=== PATIENT | female | born 2000 | race Caucasian/White ===

== ENCOUNTER 2018-06-05 16:19 | Emergency (ER) | payer SELFPAY ==
[~2018-06-05] VITALS: Ht 162.6 cm; Wt 114.5 kg
[2018-06-05 16:24] VITALS: Ht 162.6 cm; Wt 114.5 kg
[2018-06-05 16:48] LABS: BASOPHILS 0.3 % (0-2); EOSINOPHILS 3.9 % (0-7); HEMATOCRIT 40.1 % (36.0-48.0); HEMOGLOBIN 13.5 g/dL (12-16); IMMATURE GRANULOCYTES 0.1 % (0-5); LYMPHOCYTES 36.3 % (15-50); MCH 29.3 pg (26.0-34.0); MCHC 33.7 g/dL (31.0-37.0); MONOCYTES 6.3 % (2-11); NEUTROPHILS 53.1 % (40-80); PLATELET COUNT 317 10x3/uL (130-400); RBC 4.61 10x6/uL (4.00-5.40); RDW 12.2 % (11.5-14.5); WBC 9.8 10x3/uL (4.8-10.8)
[2018-06-05 16:51] LABS: APPEARANCE HAZY (CLEAR); BILIRUBIN NEGATIVE (NEGATIVE); COLOR YELLOW (YELLOW); GLUCOSE NEGATIVE (NEGATIVE); KETONE NEGATIVE (NEGATIVE); NITRITE NEGATIVE (NEGATIVE); PROTEIN NEGATIVE (NEGATIVE); SPECIFIC GRAVITY 1.015 (1.005-1.020); UROBILINOGEN NORMAL (NORMAL)
[2018-06-05 16:52] LABS: EPITHELIAL CELLS 0-5 /hpf (0-5)
[2018-06-05 16:53] LABS: AMORPHOUS SEDIMENT >1+ /lpf (NONE SEEN); BACTERIA FEW /hpf (NONE SEEN)
[2018-06-05 17:09] LABS: ALBUMIN 3.8 g/dL (3.4-5.0); ALKALINE PHOSPHATASE 66 U/L (46-116); ALT (SGPT) 18 U/L (10-68); AMYLASE - SERUM 45 U/L (25-115); BILIRUBIN - TOTAL 0.41 mg/dL (0.2-1.3); CALC OSMOLALITY 283 mosm/kg (275-300); CALCIUM 9.5 mg/dL (8.5-10.1); CARBON DIOXIDE 30.9 mmol/L (21.0-32.0); CHLORIDE - SERUM 106 mmol/L (98-107); CREATININE - SERUM 0.9 mg/dL (0.6-1.3); GLUCOSE 76 mg/dL (74-106); LIPASE 153 U/L (73-393); POTASSIUM - SERUM 4.5 mmol/L (3.5-5.1); PROTEIN - SERUM 7.1 g/dL (6.4-8.2); SODIUM 143 mmol/L (136-145); UREA NITROGEN 13 mg/dL (7-18); eGFR NON AFRICAN AMERICAN 85 mL/min (90-120)
[2018-06-05 17:34] LABS: HCG SERUM NEGATIVE (NEGATIVE)
[2018-06-05] MEDS ORDERED: PHENERGAN25 M1 PO ×2 (17:56→17:57)
[2018-06-05] MEDS ORDERED: CIPRO500 MG PO (17:56)
[2018-06-05 18:20] VITALS: BP 128/75
== END 2018-06-05 18:21 | disposition home or self-care (01) ==
LOC: D.ER 16:19
PROVIDERS: Emergency Medicine
DX: N39.0 Urinary tract infection, site not specified (principal); R10.31 Right lower quadrant pain; M54.5 Low back pain; F17.200 Nicotine dependence, unspecified, uncomplicated

== ENCOUNTER 2018-06-12 14:38 | Emergency (ER) | payer SELFPAY ==
[~2018-06-12] VITALS: Ht 162.6 cm; Wt 113.6 kg
[~2018-06-12 14:38] MED LIST: CIPRO500 MG PO; PHENERGAN25 M1 PO
[2018-06-12 14:59] VITALS: Ht 162.6 cm; Wt 113.6 kg
[2018-06-12 16:10] LABS: APPEARANCE HAZY (CLEAR); BILIRUBIN NEGATIVE (NEGATIVE); COLOR DK YELLOW (YELLOW); GLUCOSE NEGATIVE (NEGATIVE); KETONE NEGATIVE (NEGATIVE); NITRITE NEGATIVE (NEGATIVE); PROTEIN NEGATIVE (NEGATIVE); UROBILINOGEN NORMAL (NORMAL)
[2018-06-12 16:15] LABS: BACTERIA FEW /hpf (NONE SEEN); RED CELLS - URINE 0-5 /hpf (0-5); WHITE CELLS - URINE 0-5 /hpf (0-5)
[2018-06-12 16:16] LABS: MUCUS <1+ /lpf (NONE SEEN)
[2018-06-12] MEDS ORDERED: ZOFRAN4 MG PO (16:57)
[2018-06-12] MEDS ORDERED: MACROBID100 MG PO (16:57)
[2018-06-12 17:16] VITALS: BP 118/64
== END 2018-06-12 17:17 | disposition home or self-care (01) ==
LOC: D.ER 14:38
PROVIDERS: Family Medicine
DX: N39.0 Urinary tract infection, site not specified (principal); R19.7 Diarrhea, unspecified; F17.200 Nicotine dependence, unspecified, uncomplicated

== ENCOUNTER 2019-04-17 07:54 | Emergency (ER) | payer MEDICAID ==
[~2019-04-17 07:54] MED LIST changes: +MACROBID100 MG PO; +ZOFRAN4 MG PO
[2019-04-17 07:59] VITALS: Ht 162.6 cm
[2019-04-17 08:33] LABS: APPEARANCE CLEAR (CLEAR); BILIRUBIN NEGATIVE (NEGATIVE); COLOR YELLOW (YELLOW); GLUCOSE NEGATIVE (NEGATIVE); KETONE NEGATIVE (NEGATIVE); NITRITE NEGATIVE (NEGATIVE); PROTEIN NEGATIVE (NEGATIVE); UROBILINOGEN NORMAL (NORMAL)
[2019-04-17 08:34] LABS: HEMATOCRIT 38.8 % (36.0-48.0); HEMOGLOBIN 13.6 g/dL (12-16); MCH 28.8 pg (26.0-34.0); MCHC 35.1 g/dL (31.0-37.0); MCV 82.2 fL (80.0-100.0); PLATELET COUNT 256 10x3/uL (130-400); RBC 4.72 10x6/uL (4.00-5.40); RDW 12.4 % (11.5-14.5); WBC 6.9 10x3/uL (4.8-10.8)
[2019-04-17 08:45] LABS: ALBUMIN 3.6 g/dL (3.4-5.0); ALKALINE PHOSPHATASE 69 U/L (46-116); ALT (SGPT) 21 U/L (10-68); BILIRUBIN - TOTAL 0.54 mg/dL (0.2-1.3); CALC OSMOLALITY 278 mosm/kg (275-300); CALCIUM 8.9 mg/dL (8.5-10.1); CARBON DIOXIDE 25.6 mmol/L (21.0-32.0); CHLORIDE - SERUM 107 mmol/L (98-107); CREATININE - SERUM 0.7 mg/dL (0.6-1.3); GLUCOSE 89 mg/dL (74-106); POTASSIUM - SERUM 3.7 mmol/L (3.5-5.1); PROTEIN - SERUM 6.9 g/dL (6.4-8.2); SODIUM 141 mmol/L (136-145); UREA NITROGEN 9 mg/dL (7-18); eGFR NON AFRICAN AMERICAN > 90 mL/min (90-120)
[2019-04-17 09:07] LABS: HCG - QUANTITATIVE (MATERNAL) 3184 mIU/mL
[2019-04-17 09:19] LABS: EOSINOPHILS 6 % (0-7); LYMPHOCYTES 59 % (15-50); MONOCYTES 1 % (2-11); NEUTROPHILS 34 % (40-80); PLATELET ESTIMATE NORMAL
[2019-04-17 11:00] VITALS: BP 106/50
== END 2019-04-17 11:00 | disposition home or self-care (01) ==
LOC: D.ER 07:54
PROVIDERS: Emergency Medicine
DX: O26.891 Other specified pregnancy related conditions, first trimester (principal); Z3A.01 Less than 8 weeks gestation of pregnancy; R11.2 Nausea with vomiting, unspecified

== ENCOUNTER 2019-04-26 17:01 | Emergency (ER) | payer MEDICAID ==
[~2019-04-26] VITALS: Ht 162.6 cm; Wt 114.5 kg
[2019-04-26 17:50] VITALS: Ht 162.6 cm; Wt 114.5 kg
[2019-04-26 18:56] LABS: APPEARANCE CLEAR (CLEAR); BILIRUBIN NEGATIVE (NEGATIVE); COLOR YELLOW (YELLOW); GLUCOSE NEGATIVE (NEGATIVE); KETONE NEGATIVE (NEGATIVE); NITRITE NEGATIVE (NEGATIVE); PROTEIN NEGATIVE (NEGATIVE); SPECIFIC GRAVITY 1.015 (1.005-1.020); UROBILINOGEN NORMAL (NORMAL)
[2019-04-26 19:03] LABS: WHITE CELLS - URINE OCC /hpf (0-5)
[2019-04-26 19:04] LABS: EPITHELIAL CELLS 0-5 /hpf (0-5); RED CELLS - URINE OCC /hpf (0-5)
[2019-04-26 20:06] LABS: BASOPHILS 0.3 % (0-2); EOSINOPHILS 1.7 % (0-7); HEMATOCRIT 39.8 % (36.0-48.0); HEMOGLOBIN 13.9 g/dL (12-16); IMMATURE GRANULOCYTES 0.3 % (0-5); LYMPHOCYTES 40.9 % (15-50); MCH 29.1 pg (26.0-34.0); MCHC 34.9 g/dL (31.0-37.0); MCV 83.4 fL (80.0-100.0); MEAN PLATELET VOLUME 8.9 fL (7.4-10.4); MONOCYTES 7.1 % (2-11); NEUTROPHILS 49.7 % (40-80); PLATELET COUNT 261 10x3/uL (130-400); RBC 4.77 10x6/uL (4.00-5.40); RDW 12.4 % (11.5-14.5); WBC 10.8 10x3/uL (4.8-10.8)
[2019-04-26 20:49] LABS: CALC OSMOLALITY 273 mosm/kg (275-300); CALCIUM 9.2 mg/dL (8.5-10.1); CARBON DIOXIDE 26.8 mmol/L (21.0-32.0); CHLORIDE - SERUM 103 mmol/L (98-107); CREATININE - SERUM 0.6 mg/dL (0.6-1.3); GLUCOSE 88 mg/dL (74-106); HCG - QUANTITATIVE (MATERNAL) 26741 mIU/mL; SODIUM 138 mmol/L (136-145); UREA NITROGEN 9 mg/dL (7-18); eGFR NON AFRICAN AMERICAN > 90 mL/min (90-120)
[2019-04-26] MEDS ORDERED: CYCLOBENZAPRINE10 MG PO (21:22)
[2019-04-26 21:31] VITALS: BP 120/69
== END 2019-04-26 21:31 | disposition home or self-care (01) ==
LOC: D.ER 17:01
PROVIDERS: Family Medicine
DX: M54.5 Low back pain (principal)

== ENCOUNTER 2019-06-09 10:03 | Emergency (ER) | payer MEDICAID ==
[~2019-06-09] VITALS: Ht 162.6 cm; Wt 114.5 kg
[~2019-06-09 10:03] MED LIST changes: +CYCLOBENZAPRINE10 MG PO
[2019-06-09 10:12] VITALS: Ht 162.6 cm; Wt 114.5 kg
[2019-06-09 10:45] LABS: BASOPHILS 0.3 % (0-2); EOSINOPHILS 0.8 % (0-7); HEMATOCRIT 35.6 % (36.0-48.0); HEMOGLOBIN 12.5 g/dL (12-16); IMMATURE GRANULOCYTES 0.1 % (0-5); LYMPHOCYTES 38.7 % (15-50); MCH 28.9 pg (26.0-34.0); MCHC 35.1 g/dL (31.0-37.0); MCV 82.4 fL (80.0-100.0); MEAN PLATELET VOLUME 9.2 fL (7.4-10.4); MONOCYTES 6.9 % (2-11); NEUTROPHILS 53.2 % (40-80); PLATELET COUNT 278 10x3/uL (130-400); RBC 4.32 10x6/uL (4.00-5.40); RDW 12.1 % (11.5-14.5); WBC 7.3 10x3/uL (4.8-10.8)
[2019-06-09 10:53] LABS: CALC OSMOLALITY 269 mosm/kg (275-300); CALCIUM 9.2 mg/dL (8.5-10.1); CARBON DIOXIDE 24.6 mmol/L (21.0-32.0); CHLORIDE - SERUM 104 mmol/L (98-107); CREATININE - SERUM 0.5 mg/dL (0.6-1.3); GLUCOSE 82 mg/dL (74-106); POTASSIUM - SERUM 3.9 mmol/L (3.5-5.1); SODIUM 137 mmol/L (136-145); UREA NITROGEN 5 mg/dL (7-18); eGFR NON AFRICAN AMERICAN > 90 mL/min (90-120)
[2019-06-09 11:05] LABS: APPEARANCE CLOUDY (CLEAR); BILIRUBIN NEGATIVE (NEGATIVE); COLOR YELLOW (YELLOW); GLUCOSE NEGATIVE (NEGATIVE); KETONE SMALL mg/dL (NEGATIVE); NITRITE NEGATIVE (NEGATIVE); PROTEIN NEGATIVE (NEGATIVE); UROBILINOGEN NORMAL (NORMAL)
[2019-06-09 11:09] LABS: AMORPHOUS SEDIMENT >1+ /lpf (NONE SEEN); BACTERIA FEW /hpf (NEGATIVE); EPITHELIAL CELLS 0-5 /hpf (0-5); MUCUS >1+ /lpf (NONE SEEN); RED CELLS - URINE RARE /hpf (0-5); WHITE CELLS - URINE 0-5 /hpf (NEGATIVE)
[2019-06-09 11:19] LABS: ALBUMIN 3.9 g/dL (3.4-5.0); ALKALINE PHOSPHATASE 64 U/L (46-116); ALT (SGPT) 32 U/L (10-68); HCG - QUANTITATIVE (MATERNAL) 82317 mIU/mL; PROTEIN - SERUM 7.6 g/dL (6.4-8.2)
[2019-06-09] MEDS ORDERED: ZOFRAN ODT4 MG/UDTAB PO (14:11)
[2019-06-09 15:05] VITALS: BP 128/61
== END 2019-06-09 15:05 | disposition home or self-care (01) ==
LOC: D.ER 10:03
PROVIDERS: Family Medicine
DX: O26.90 Pregnancy related conditions, unspecified, unspecified trimester (principal); R11.2 Nausea with vomiting, unspecified

== ENCOUNTER 2019-06-11 15:05 | Emergency (ER) | payer MEDICAID ==
[~2019-06-11] VITALS: Ht 162.6 cm; Wt 97.7 kg
[~2019-06-11 15:05] MED LIST changes: +ZOFRAN ODT4 MG/UDTAB PO
[2019-06-11 15:10] VITALS: Ht 162.6 cm; Wt 97.7 kg
[2019-06-11 18:50] VITALS: BP 116/45
== END 2019-06-11 18:45 | disposition home or self-care (01) ==
LOC: D.ER 15:05
DX: O20.0 Threatened abortion (principal); O99.331 Smoking (tobacco) complicating pregnancy, first trimester

== ENCOUNTER 2019-07-14 12:34 | Emergency (ER) | payer MEDICAID ==
[~2019-07-14] VITALS: Ht 162.6 cm; Wt 118.2 kg
[2019-07-14 12:39] VITALS: Ht 162.6 cm; Wt 118.2 kg
[2019-07-14 13:21] LABS: CALC OSMOLALITY 266 mosm/kg (275-300); CALCIUM 9.2 mg/dL (8.5-10.1); CARBON DIOXIDE 22.1 mmol/L (21.0-32.0); CHLORIDE - SERUM 104 mmol/L (98-107); CREATININE - SERUM 0.5 mg/dL (0.6-1.3); GLUCOSE 79 mg/dL (74-106); POTASSIUM - SERUM 3.8 mmol/L (3.5-5.1); SODIUM 135 mmol/L (136-145); UREA NITROGEN 6 mg/dL (7-18); eGFR NON AFRICAN AMERICAN > 90 mL/min (90-120)
[2019-07-14 13:41] LABS: BASOPHILS 0.2 % (0-2); EOSINOPHILS 0.7 % (0-7); HEMATOCRIT 31.5 % (36.0-48.0); IMMATURE GRANULOCYTES 0.3 % (0-5); LYMPHOCYTES 28.9 % (15-50); MCH 29.4 pg (26.0-34.0); MCHC 34.9 g/dL (31.0-37.0); MCV 84.2 fL (80.0-100.0); MONOCYTES 6.1 % (2-11); NEUTROPHILS 63.8 % (40-80); PLATELET COUNT 333 10x3/uL (130-400); RBC 3.74 10x6/uL (4.00-5.40); RDW 12.4 % (11.5-14.5); WBC 10.6 10x3/uL (4.8-10.8)
[2019-07-14 13:45] LABS: APPEARANCE CLEAR (CLEAR); BILIRUBIN NEGATIVE (NEGATIVE); COLOR YELLOW (YELLOW); GLUCOSE NEGATIVE (NEGATIVE); KETONE NEGATIVE (NEGATIVE); NITRITE NEGATIVE (NEGATIVE); PROTEIN NEGATIVE (NEGATIVE); SPECIFIC GRAVITY 1.015 (1.005-1.020)
[2019-07-14 13:46] LABS: BACTERIA MODERATE /hpf (NEGATIVE); EPITHELIAL CELLS 0-5 /hpf (0-5); MUCUS <1+ /lpf (NONE SEEN); RED CELLS - URINE NONE SEEN /hpf (0-5); WHITE CELLS - URINE RARE /hpf (NEGATIVE)
[2019-07-14 13:49] LABS: ALBUMIN 3.2 g/dL (3.4-5.0); ALKALINE PHOSPHATASE 109 U/L (46-116); ALT (SGPT) 47 U/L (10-68); HCG - QUANTITATIVE (MATERNAL) 38990 mIU/mL; PROTEIN - SERUM 7.2 g/dL (6.4-8.2)
[2019-07-14 15:21] VITALS: BP 124/66
[2019-07-14] MEDS ORDERED: KEFLEX500 MG PO (16:10)
[2019-07-14] MEDS ORDERED: MACROBID100 MG PO (16:10)
== END 2019-07-14 16:18 | disposition home or self-care (01) ==
LOC: D.ER 12:34
PROVIDERS: Family Medicine
DX: O20.0 Threatened abortion (principal); Z3A.18 18 weeks gestation of pregnancy; R82.71 Bacteriuria; O26.852 Spotting complicating pregnancy, second trimester

== ENCOUNTER → 2019-08-12 12:56 | Outpatient (CLI) | payer MEDICAID ==
[2019-07-14 12:39] VITALS: BMI 44.7
[~2019-08-12 12:56] MED LIST changes: +KEFLEX500 MG PO
== END | disposition home or self-care (01) ==
LOC: D.LDO 12:56
PROVIDERS: ATTEND Obstetrics & Gynecology
DX: O36.8120 Decreased fetal movements, second trimester, not applicable or unspecified (principal); Z3A.22 22 weeks gestation of pregnancy

== ENCOUNTER → 2019-08-18 14:50 | Outpatient (CLI) | payer MEDICAID ==
[2019-07-14 12:39] VITALS: BMI 44.7
== END | disposition home or self-care (01) ==
LOC: D.LDO 14:50
PROVIDERS: ATTEND Obstetrics & Gynecology
DX: O26.899 Other specified pregnancy related conditions, unspecified trimester (principal); W19.XXXA Unspecified fall, initial encounter; Y92.69 Other specified industrial and construction area as the place of occurrence of the external cause

== ENCOUNTER → 2019-08-19 13:47 | Outpatient (CLI) | payer MEDICAID ==
[2019-07-14 12:39] VITALS: BMI 44.7
== END | disposition home or self-care (01) ==
LOC: D.LDO 13:47
PROVIDERS: ATTEND Obstetrics & Gynecology
DX: O26.892 Other specified pregnancy related conditions, second trimester (principal); M54.89 Other dorsalgia; R11.0 Nausea; Z3A.22 22 weeks gestation of pregnancy

== ENCOUNTER → 2019-11-01 10:02 | Outpatient (CLI) | payer MEDICAID ==
[2019-07-14 12:39] VITALS: BMI 44.7
[~2019-11-01 10:02] MED LIST changes: +ALBUTEROL SULF8.5 GM INH; +PROTONIX40 MG PO
[2019-11-01 10:39] LABS: UDS - AMPHET NEGATIVE QUAL (NEGATIVE); UDS - BARB NEGATIVE QUAL (NEGATIVE); UDS - BENZO NEGATIVE QUAL (NEGATIVE); UDS - COCAINE NEGATIVE QUAL (NEGATIVE); UDS - OPIATE NEGATIVE QUAL (NEGATIVE); UDS - PCP NEGATIVE QUAL (NEGATIVE); UDS - THC POSITIVE QUAL (NEGATIVE)
--- NOTE | 2019-11-01 10:47 | NUR ---
DR CHAO NOTIFIED AND REVIEWED PT'S BEHAVIOR AND ASSESSMENT RESULTS. PT IS A LOW RISK PER DR. CHAO. DR. CHAO STATED TO GIVE RESOURCES TO PT AT TIME OF DISCHARGE. NO FURTHER ORDERS AT THIS TIME. RESOURCES REVIEWED WITH PT. AND SHE VERBALIZED UNDERSTANDING.
[2019-11-01 11:00] LABS: BILIRUBIN NEGATIVE (NEGATIVE); GLUCOSE NEGATIVE (NEGATIVE); KETONE NEGATIVE (NEGATIVE); NITRITE NEGATIVE (NEGATIVE); RED CELLS - URINE RARE /hpf (0-5); SPECIFIC GRAVITY 1.015 (1.005-1.020); UROBILINOGEN NORMAL (NORMAL); WHITE CELLS - URINE 0-5 /hpf (NEGATIVE)
[2019-11-01 11:01] LABS: BACTERIA MODERATE /hpf (NEGATIVE)
== END | disposition home or self-care (01) ==
LOC: D.LDO 10:02
PROVIDERS: ATTEND Obstetrics & Gynecology
DX: O36.8130 Decreased fetal movements, third trimester, not applicable or unspecified (principal); Z3A.33 33 weeks gestation of pregnancy

== ENCOUNTER → 2019-11-28 15:47 | Outpatient (CLI) | payer MEDICAID ==
[2019-07-14 12:39] VITALS: BMI 44.7
--- NOTE | 2019-11-28 16:01 | NUR ---
DR CHAO NOTIFIED AND REVIEWED PT'S BEHAVIOR AND ASSESSMENT. PT IS A LOW RISK. RESOURCES GIVEN AND SHE VERBALIZES UNDERSTANDING.
[2019-11-28 16:48] LABS: HEMATOCRIT 31.1 % (36.0-48.0); HEMOGLOBIN 10.1 g/dL (12-16); MCH 28.5 pg (26.0-34.0); MCHC 32.5 g/dL (31.0-37.0); MCV 87.6 fL (80.0-100.0); MEAN PLATELET VOLUME 9.1 fL (7.4-10.4); RBC 3.55 10x6/uL (4.00-5.40); RDW 12.7 % (11.5-14.5); WBC 11.6 10x3/uL (4.8-10.8)
[2019-11-28 16:57] LABS: CALC OSMOLALITY 271 mosm/kg (275-300); CALCIUM 8.6 mg/dL (8.5-10.1); CHLORIDE - SERUM 106 mmol/L (98-107); CREATININE - SERUM 0.7 mg/dL (0.6-1.3); GLUCOSE 86 mg/dL (74-106); SODIUM 137 mmol/L (136-145); UREA NITROGEN 9 mg/dL (7-18); eGFR NON AFRICAN AMERICAN > 90 mL/min (90-120)
[2019-11-28 17:02] LABS: ALT (SGPT) 23 U/L (10-68); URIC ACID 5.5 mg/dL (2.6-7.2)
[2019-11-29 18:04] LABS: PROTEIN - URINE 24.7 mg/dL (0.0-11.9)
== END | disposition home or self-care (01) ==
LOC: D.LDO 15:47
PROVIDERS: ATTEND Obstetrics & Gynecology
DX: O35.9XX0 Maternal care for (suspected) fetal abnormality and damage, unspecified, not applicable or unspecified (principal)

== ENCOUNTER 2019-12-12 20:11 | Inpatient (IN) | payer MEDICAID ==
[~2019-12-12] VITALS: Ht 162.6 cm; Wt 134.5 kg
[2019-12-12 20:47] VITALS: BP 119/57; Ht 162.6 cm; Wt 134.5 kg
[2019-12-12 21:31] LABS: HEMATOCRIT 31.8 % (36.0-48.0); HEMOGLOBIN 10.3 g/dL (12-16); MCH 28.2 pg (26.0-34.0); MCHC 32.4 g/dL (31.0-37.0); MCV 87.1 fL (80.0-100.0); MEAN PLATELET VOLUME 9.4 fL (7.4-10.4); RBC 3.65 10x6/uL (4.00-5.40); RDW 12.6 % (11.5-14.5); WBC 13.4 10x3/uL (4.8-10.8)
[2019-12-12 21:44] LABS: UDS - AMPHET NEGATIVE QUAL (NEGATIVE); UDS - BARB NEGATIVE QUAL (NEGATIVE); UDS - BENZO NEGATIVE QUAL (NEGATIVE); UDS - COCAINE NEGATIVE QUAL (NEGATIVE); UDS - OPIATE NEGATIVE QUAL (NEGATIVE); UDS - PCP NEGATIVE QUAL (NEGATIVE); UDS - THC NEGATIVE QUAL (NEGATIVE)
[2019-12-14 06:08] LABS: RAPID PLASMA REAGIN Non Reactive (Non Reactive)
[2019-12-15] VITALS (9 sets, daily range): BP systolic 100–124; BP diastolic 56–77
--- NOTE | 2019-12-15 13:00 | NUR ---
RECEIVED PT FROM VIA BED TO ROOM 1273. BED LOCKED AND PLACED IN LOW POSITION. PT AWAKE. AAO X 3. VSS. HRRR WITHOUT AUDIBLE MURMUR. BBS CLEAR. BS X 4-HYPOACTIVE. ABDOMEN SOFT/NON-DISTENDED. FUNDUS FIRM TO PT RIGHT OF UMB. RUBRA LOCHIA MOD AMT. 2 QUARTER SIZED CLOTS NOTED. FUNDUS MASSAGED WITH NO CLOTS EXPRESSED OR ACTIVE BLEEDING NOTED. PERICARE DONE. CHUX, PINK PAD AND TOWEL CHANGED. PERIPADS IN PLACE TO MONITOR LOCHIA. ABDOMINAL INCISION WITH DERMABOND WITHOUT REDNESS, SWELLING OR DRAINAGE NOTED. PERIPAD TO INCISION. MURRY TO GRAVITY DRAINING NARESH COLORED URINE. 2+/2+ PITTING EDEMA NOTED TO BLE. PPP. NEG HOMANS' SIGN. SCDS ON BLE. PUMP ON. ICE PACK TO INCISION. PIV OF NS WITH PITOCIN INFUSING AT 125 ML/HR TO RIGHT WRIST. SITE CLEAR. PT STATES C/O ABDOMINAL CRAMPING OF "5" ON 0-10 PAIN SCALE. PT INSTRUCTED ON USE OF INCENTIVE SPIROMETER AND PT PULLS 2200 EASILY. PT USES SURGICAL SPLINT PILLOW INSTRUCTED. PT ORIENTED TO ROOM, BED, AND CALL LIGHT. SR UPX 2. CALL LIGHT IN REACH.
--- NOTE | 2019-12-15 13:20 | NUR ---
DR. TALBOT CALLS TO UNIT.
--- NOTE | 2019-12-15 14:00 | NUR ---
PT SITTING UP IN BED. COMPLETING PAPERWORK FOR NURSERY. PERIPADS CHANGED WITH SMALL TO MOD AMT OF KATHY ANDRES NOTED. NO CLOTS NOTED. VSS. PT DENIES C/O. STATES PAIN NOW"4" ON 0-10 PAIN SCALE. STATES "IT'S NOT BAD".
--- NOTE | 2019-12-15 14:05 | NUR ---
PT ENCOURAGED TO CONSUME LIQUIDS TO IMPROVE URINARY OUTPUT. PT PROVIDED TALL CUP OF WATER AND TALL CUP OF APPLE JUICE. DENIES NAUSEA.
--- NOTE | 2019-12-15 14:08 | NUR ---
DR. TALBOT CALLS TO UNIT TO LEAVE SECONDARY CONTACT PHONE NUMBER FOR HIS CALL TIME. TELEPHONE ORDER RECEIVED FROM MD TO ADMINISTER 2 GRAM IV AT 2PM, AND AGAIN AT 10 PM TODAY. REPORT TO Yadira DOTSON RN.
--- NOTE | 2019-12-15 14:45 | NUR ---
PT CALLS ON LIGHT. C/O INCISIONAL PAIN/CRAMPING OF "8" ON 0-10 PAIN SCALE. DILAUDID 2 MG GIVEN SIVP OVER 2 MINUTES. PT INSTRUCTED ON MED. VERBALIZES UNDERSTANDING.
--- NOTE | 2019-12-15 15:00 | NUR ---
PT CONSUMES BOTH ICE WATER AND APPLE JUICE. ANOTHER TALL CUP OF WATER AND TALL CUP OF APPLE JUICE PROVIDED. PT DENIES NAUSEA.
--- NOTE | 2019-12-15 17:00 | NUR ---
I/O COMPLETED. FUNDUS FIRM AT U/U. KATHY ACEVEDO AMT. NO CLOTS EXPRESSED. PERIPADS CHANGED. I/O COMPLETED. ICE WATER PROVIDED TO PT. PT DENIES NEEDS OR C/O.
--- NOTE | 2019-12-15 18:40 | NUR ---
PERIPADS CHANGED. SMALL AMT OF RUBRA LOCHIA NOTED. NO CLOTS NOTED. FRESH ICE PACK TO INCISION. FRESH ICE WATER AND APPLE JUICE PROVIDED TO PT. PT DENIES PAIN OR NEEDS.
--- NOTE | 2019-12-15 19:23 | NUR ---
PT SITTING UP IN BED. HOLDS WITH MUCH WARMTH SHOWN. TORADOL 30 MG GIVEN SIVP OVER 2 MINUTES. PT INSTRUCTED ON MED. VERBALIZES UNDERSTANDING.
--- NOTE | 2019-12-15 19:40 | NUR ---
PT HOLDING INFANT, INFORMED PT THAT I WILL BE BACK SHORTLY TO DO ASSESSMENT, PT VERBALIZES UNDERSTANDING, RATES INC AND BACK PAIN /, DENIES NEEDS AT THIS TIME, FOB AT BEDSIDE
--- NOTE | 2019-12-15 20:30 | NUR ---
PT TRANSFERRED VIA BED TO WOMEN SERVICES ROOM 1220, TO NSY PER THIS RN, PT ORIENTED TO ROOM, BED IN LOW POSITION, SIDE RAILS X 2, CALL LIGHT IN REACH, FOB AT BEDSIDE, BROUGHT ALL BELONGINGS
--- NOTE | 2019-12-15 21:43 | NUR ---
ASSESSMENT PER FLOW SHEET, VS OBTAINED, IV IN RIGHT WRIST INTACT WITH NO REDNESS OR EDEMA INFUSING VIA PUMP NS WITH PITOCIN, FF, ML, U/1, LITE BLEEDING NOTED WITH NO CLOTS, TRAVIS CARE DONE WITH WET WARM WASH CLOTHS, TRAVIS PAD CHANGED, BIKINIK INC WITH DRESSING WITH LITE DRIED DRAINAGE NOTED, TRAVIS PAD OVER INC FOR COMFORT AND MOISTURE CONTROL, FRESH ICE PACK TO ABD, MURRY CATH INTACT DRAINING DARK YELLOW URINE, SCD'S ON AND WORKING PROPERLY, POC DISCUSSED WITH PT REGARDING REMOVING MURRY CATH AND SALINE LOCK IV, PT VERBALIZES UNDERSTANDING, PT RATES INC AND BACK PAIN 2/10 AT THIS TIME, DENIES NEED FOR PAIN MED AT THIS TIME, BED IN LOW POSITION, SIDE RAILS X 2, CALL LIGHT IN REACH
--- NOTE | 2019-12-15 22:15 | NUR ---
BEDDING PROVIDED FOR FOB, PT DENIES FURTHER NEEDS
--- NOTE | 2019-12-15 23:13 | NUR ---
ADM ANCEF IVPB AND PERCOCET PO PER MD ORDERS, SEE EMAR, PT DENIES NEEDS AT THIS TIME, BACK TO NSY VIA OPEN CRIB CART PER SURJIT CESAR RN
[2019-12-16 00:27] VITALS: BP 96/54
--- NOTE | 2019-12-16 00:27 | NUR ---
PT AWAKE, VS OBTAINED, ADM TORADOL SIVP PER MD ORDERS, IV CONVERTED TO SALINE LOCK, FLUSHED WITH 10 MLS OF NS WITH NO DIFFICULTY, MURRY CATH REMOVED, TIP INTACT, EMPTIED 900 MLS OF DARK YELLOW URINE OUT OF MURRY, SCD'S REMOVED, PT UP TO BR, GAIT STEADY, UNABLE TO VOID, PT INST ON AND VERBALIZES UNDERSTANDING OF VOIDING, ASSISTED PT WITH TRAVIS PAD, PANTIES, AND CLEAN GOWN, PT REQUESTS TO AMB IN ROOM FOR A FEW MINUTES, INFORMED PT THAT I WILL GET ICE PACK AND BE BACK IN A FEW MINUTES, FOB IN ROOM
--- NOTE | 2019-12-16 00:50 | NUR ---
PT BACK TO BED, SCD'S RECONNECTED AND WORKING PROPERLY, NEW TRAVIS PAD OVER INC FOR COMFORT AND MOISTURE CONTROL, PT INST ON AND VERBALIZES UNDERSTANDING OF INC CARE, ICE PACK TO ABD, PT DENIES FURTHER NEEDS, ASSISTED FOB WITH PULL OUT RECLINER
--- NOTE | 2019-12-16 01:00 | NUR ---
PT REQUESTED AND SERVED FRESH APPLE JUICE, DENIES FURTHER NEEDS
--- NOTE | 2019-12-16 02:16 | NUR ---
PT RESTING WITH EYES CLOSED, RESP QUIET, NO DISTRESS NOTED, LEFT UNDISTURBED AT THIS TIME, SCD'S CONTINUE ON AND WORKING PROPERLY, FOB ASLEEP AT BEDSIDE
[2019-12-16 04:19] VITALS: BP 98/56
--- NOTE | 2019-12-16 04:19 | NUR ---
PT RESTING WITH EYES CLOSED, AROUSES TO SOFT VERBAL STIMULATION, VS OBTAINED, SCD'S OFF, UP TO BR WITH ASSISTANCE, GAIT STEADY, VOIDED 600 MLS OF LIGHTLY BLOOD TINGED URINE BY SELF WITH NO DIFFICULTY, 2 SMALL PEA SIZE CLOTS NOTES IN [place] HAT, PT INST ON AND VERBALIZES UNDERSTANDING OF PPH, ASSISTED PT WITH TRAVIS PAD AND PANTIES, PT BACK TO BED, SCD'S RECONNECTED AND WORKING PROPERLY, ADM PERCOCET PER MD ORDERS, SEE EMAR, FRESH ICE PACK TO ABD, PT DENIES FURTHER NEEDS, FOB ASLEEP AT BEDSIDE
[2019-12-16 05:31] LABS: HEMATOCRIT 27.3 % (36.0-48.0); HEMOGLOBIN 8.7 g/dL (12-16); MCH 27.7 pg (26.0-34.0); MCHC 31.9 g/dL (31.0-37.0); MCV 86.9 fL (80.0-100.0); MEAN PLATELET VOLUME 9.2 fL (7.4-10.4); RBC 3.14 10x6/uL (4.00-5.40); RDW 12.7 % (11.5-14.5); WBC 9.8 10x3/uL (4.8-10.8)
--- NOTE | 2019-12-16 06:34 | NUR ---
PT AWAKE, HOLDING INFANT, SALINE LOCK FLUSHED, ADM TORADOL DILUTED IN 5MLS OF NS, SIVP, THEN FLUSHED, PT REQUESTED AND SERVED FRESH H20, PT DENIES FURTHER NEEDS, FOB ASLEEP IN RECLINER
[2019-12-16 08:00] VITALS: BP 118/73
--- NOTE | 2019-12-16 08:00 | NUR ---
AM ASSESSMENT COMPLETED, SEE FLOW SHEET. PT DENIES HEAVY BLEEDING OR PASSING CLOTS. INCISION C/D/I, WITHOUT REDNESS OR SWELLING. PT HAS REGULAR BREAKFAST TRAY AT BEDSIDE. DENIES N/V OR SOB. SIG OTHER AT BEDSIDE, TENDING TO . PT DENIES ALL OTHER NEEDS. SRUP X2, CALL LIGHT AND PHONE WITHIN REACH.
--- NOTE | 2019-12-16 09:00 | NUR ---
DR. TALBOT IN ROOM TO SPEAK WITH PT.
--- NOTE | 2019-12-16 11:00 | NUR ---
CAREGIVER CHANGE REPORT GIVEN TO Derrick ALEJO RN.
--- NOTE | 2019-12-16 11:06 | NUR ---
TRANSFERRED ROOMS FROM 1220 TO 1274. AMBULATED TO ROOM WITHOUT DIFFICULTY. IN CRIB. ALL BELONGINGS REMOVED FROM ROOM. PT ORIENTED TO ROOM AND CALL LIGHT. DENIES NEEDING ANYTHING AT PRESENT. FRESH WATER GIVEN. CURRENTLY AMBULATING IN ROOM. NURSERY RN NOTIFIED OF ROOM CHANGE. PT TO CALL IF ANYTHING IS NEEDED. VERBALIZED UNDERSTANDING.
--- NOTE | 2019-12-16 13:14 | NUR ---
SAYS SHE FINISHED SHOWER AND JUST STARTED HURTING. 5/10 INCISIONAL PAIN. PERCOCET 10 MG GIVEN PO FOR RELIEF AFTER DISCUSSING PAIN MANAGEMENT OPTIONS. NO ADDITIONAL REQUESTS. UP AD DREW. VOIDING WITHOUT DIFFICULTY. PLACED CLEAN TRAVIS-PAD OVER INCISION PER SELF. SIDE RAILS UP X 2, CALL LIGHT IN REACH. TO CALL IF ANYTHING IS NEEDED.
--- NOTE | 2019-12-16 15:12 | NUR ---
LAYING IN BED STATES "I THINK THAT PAIN MEDICATION IS JUST STARTING TO WORK BECAUSE I AM GETTING DROWSY AND HAD TO SEND THE BABY TO THE NURSERY." 09/01 INCISIONAL ACHING. SIDERAILS UP X 2, CALL LIGHT IN REACH. TO CALL IF ANYTHING IS NEEDED. VERBALIZED UNDERSTANDING.
[2019-12-16 16:38] VITALS: BP 115/59
--- NOTE | 2019-12-16 16:42 | NUR ---
JUST WOKE UP FOR DINNER. VS OBTAINED. INCISION INTACT WITH DERMOBOND, NO DRAINAGE OR ERRYTHEMA. 1-2/10 ON PAIN SCALE. DENIES NEEDING ANYTHING. VISIOR SLEEPING ON COUCH. REGULAR DINNER TRAY AT BEDSIDE. TO CALL IF ANYTHING IS NEEDED.
--- NOTE | 2019-12-16 18:17 | NUR ---
AMBULATING IN ROOM. DENIES NEEDING ANYTHING OTHER THAN ICE WATER WHICH WAS GIVEN. REMINDED TO AMBULATE IN [facility] THIS PM. VISITOR AND INFANT IN ROOM. VERBALIZED UNDERSTANDING.
--- NOTE | 2019-12-16 18:31 | NUR ---
CURRENTLY AMBULATING IN [facility] WITH VISITOR. IN NURSERY.
--- NOTE | 2019-12-16 18:56 | NUR ---
bedside shift report was rec'd at 1856 from cornelio grimes rn at pt's bedside. Documentation was done on wrong pt.
[2019-12-16 19:04] VITALS: BP 111/57
--- NOTE | 2019-12-16 19:04 | NUR ---
REC'D PT AA&O X 4 SITTING ON SOFA WITH SIG OTHER. PAIN AND NEEDS ASSESSED. PT REPORTS PAIN 3/10 AND ONLY NEEDS AT THIS TIME IS ADDITIONAL ICE WATER. SHIFT ASSESSMENT COMPLETED. SEE FLOWSHEET. FRESH ICE WATER SERVED. POC DISCUSSED W/PT. PT VERBALZIES UNDERSTANDING AND AGREEABLE. DENIES ADDITIONAL NEEDS. NBN NURSE TO BEDSIDE W/BABY AT THIS TIME. BED LOW, SIDE RAILS UP X 2. CALL LIGHT AT PT'S SIDE. PT REQUESTING TORADOL WHEN SHE CAN HAVE IT AGAIN AND WOULD LIKE TO WAIT UNTIL BEDTIME TO TAKE PERCOCET AGAIN.
--- NOTE | 2019-12-16 19:10 | NUR ---
PT MEDICATED W/MADINA 10MG PO PER MD ORDERS.
--- NOTE | 2019-12-16 20:05 | NUR ---
ROUNDS MADE. PT AA&O. NBN NURSE AT BEDSIDE TO ASSIST WITH . PAIN REASSESSED. PT REPORTS PAIN HAS ACTUALLY INCREASED FROM HER UP AND AMBULATING. RATES PAIN 5/10. PT REQUESTING PERCOCET NOW. PT MEDICATED W/ PERCOCET 10/325MG PO. DENIES FURTHER NEEDS AT THIS TIME.
--- NOTE | 2019-12-16 20:50 | NUR ---
ROUNDS MADE FOR PAIN REASSESSMENT AND NEEDS. PT REPORTS PAIN REMAINS THE SAME. STATES "I THINK I JUST GOT UP AND MOVED AROUND TOO MUCH." NO REQUEST FOR ADDITIONAL PAIN INTERVENTIONS AT THIS TIME. BABY TRANSPORTED VIA OPEN CRIB BACK TO NBN PER PT'S REQUEST.
--- NOTE | 2019-12-16 21:56 | NUR ---
ROUNDS MADE. PT LYING AWAKE IN BED. PAIN AND NEEDS ASSESSED. PT REPORTS PAIN IS STILL 5/10. REPORTS SHE JUST RETURNED FROM THE BR AFTER VOIDING. PT ENCOURAGED TO REST THE REMAINDER OF THE NIGHT AND SCHEDULED TORADOL WILL BE GIVEN AND IF REQUESTED, PERCOCET WHEN PT MAY HAVE IT. PT AGREEABLE. DENIES NEEDS. NO REQUEST FOR FURTHER PAIN INTERVENTIONS AT THIS TIME.
--- NOTE | 2019-12-16 23:45 | NUR ---
PT RINGS CALL LIGHT REQUESTING NBN NURSE TO ROOM AND FRESH ICE WATER. THIS RN AND NBN NURSE Darrel SELF N TO BEDSIDE. VITAL SIGNS OBTAINED. SEE FLOWSHEET. PAIN MEDICATION OFFERED. PT ACCEPTS. PT MEDICATED W/PERCOCET 10/325MG PO. SEE EMAR. FRESH ICE WATER SERVED. PT DENIES FURTHER NEEDS. RATES PAIN 2/10 AT THIS TIME. BED LOW, SIDE RAILS UP X 2. CALL LIGHT AT PT'S SIDE.
[2019-12-17] VITALS: BP 121/60
--- NOTE | 2019-12-17 01:00 | NUR ---
ROUNDS MADE. PT RESTING QUIETLY W/EYES CLOSED IN LOW RIVERA'S. RESP EVEN AND UNLABORED. NO DISTRESS NOTED. PT LEFT UNDISTURBED TO ALLOW FOR REST.
--- NOTE | 2019-12-17 03:00 | NUR ---
PT AMBULATORY TO HER DOOR. REQUEST A FRESH BLANKET AND TO NOW RECEIVE RPEVIOUSLY HELD TORDAOL. THIS RN TO BEDSIDE W/CLEAN BLANKET AND TORADOL 10MG PO GIVEN. SEE EMAR. PT DENIES FURTHER NEEDS AT THIS TIME. BED LOW, SIDE RAILS UP X 2. CALL LIGHT AT BEDSIDE.
--- NOTE | 2019-12-17 05:00 | NUR ---
ROUNDS MADE. PT RESTING IN LOW RIVERA'S W/EYES CLOSED. RESP EVEN AND UNLABORED. PT LEFT UNDISTURBED TO ALLOW FOR REST.
--- NOTE | 2019-12-17 06:15 | NUR ---
ROUNDS MADE. PT AWAKE SITTING ON SIDE IF BED. DENIES PAIN OR NEEDS AT THIS TIME.
[2019-12-17 07:30] VITALS: BP 120/63
--- NOTE | 2019-12-17 07:30 | NUR ---
SITTING UP IN BED WAITING ON BREAKFAST. SHIFT ASSESSMENT COMPLETED. DISCUSSED RELIEF MEASURES FOR LE EDEMA. DISCUSSED HEBICLEANSE FOR SHOWER, USED YESTERDAY AND NOTICED SOME ITCHING MID ABDOMEN. SUGGESTED USE ON INCISION AREA ONLY AND TO USE OTHER FOAM SOAP THAT WAS GIVEN FOR REST OF BODY. VERBALIZED UNDERSTANDING. 0/10 PAIN. DENIES NEEDING ANYTHING. TO NURSERY FOR ASSESSMENT BY NURSERY RN. B NEG, 0 NEG, RUBELLA IMMUNE, RECEIVED TDAP AND FLU VACCINE DURING PER RECORDS, NON-SMOKER. ANTICIPATE DC HOME TODAY. VISITOR ON COUCH, SIDERAILS UP X 2, CALL LIGHT IN REACH. TO CALL IF ANYTHING IS NEEDED.
--- NOTE | 2019-12-17 09:17 | NUR ---
SITTING ON EDGE OF BED. DENIES NEEDING ANYTHING. / INCISIONAL ACHING. READY TO GO HOME. HAS BEEN SEEN BY DOUBLE BACKER AND DC ORDERS READY. WAITING ON OB TO VISIT. VISITOR AND IN ROOM. PLANS TO SHOWER AND GET DRESSED.
--- NOTE | 2019-12-17 09:42 | NUR ---
DR TALBOT VISITED PATIENT. PLANS [place] HOME.
--- NOTE | 2019-12-17 11:16 | NUR ---
VERBAL AND WRITTEN DC INSTRUCTIONS GIVEN TO INCLUDE POST OP INSTRUCTIONS, PP DEPRESSION, DANGER SIGNS, BREAST/BOTTLEFEEDING FEEDING, BREAST CARE, S&S INFECTION, MEDICATION ADMINISTRATION, COVID 19 AND FOLLOW-UP. VERBALIZED UNDERSTANDING, NO SPECIFIC QUESTIONS.
[2019-12-17] MEDS ORDERED: PERCOCET 7.5/321 TAB PO (11:24)
[2019-12-17] MEDS ORDERED: IBUPROFEN800 MG PO (11:24)
--- NOTE | 2019-12-17 11:28 | NUR ---
DC VIA WHEELCHAIR TO CAR. IN CARSEAT. ALL BELONGINGS REMOVED. HAS PRESCRIPTION AND DC INSTRUCTIONS IN HAND.
--- NOTE | 2019-12-17 11:38 | NUR ---
DR TALBOT CONTACTED REGARDING INHALER THAT WAS ORDERED. HE CO-SIGNED ORDER BECAUSE IT WAS ENTERED BY ANOTHER PROVIDER. THIS ORDER WAS ENTERED ON WRONG PATIENT AND THE OTHER PROVIDER WILL BE NOTIFIED TO ENTER FOR CORRECT PATIENT.
--- NOTE | 2019-12-20 16:06 | OP ---
PATIENT NAME: DINO BURNETTE MEDICAL RECORD: [id number] :98 LOCATION:[id number]1274 ADMISSION DATE:12/12/19 SURGEON: RIK TALBOT MD DATE OF OPERATION: 12/15/2019 PREOPERATIVE DIAGNOSES: 1. at 39 weeks' gestation. 2. Failed induction of labor. 3. Morbid obesity. POSTOPERATIVE DIAGNOSES: 1. at 39 weeks' gestation. 2. Failed induction of labor. 3. Morbid obesity. PROCEDURES PERFORMED: 1. Failed induction of labor. 2. Primary low transverse section. SURGEON: Rik Talbot MD STEAMER OPERATOR: Shawn Webster. ANESTHESIA: Continuous lumbar epidural. FINDINGS: Large pannus. Unremarkable uterus, tubes, and ovaries. Female infant, vertex presentation, Apgars 9 and 9, weight 7 pounds 14 ounces. SPECIMEN REMOVED: Placenta. SPECIMEN DISPOSITION: Discarded. ESTIMATED BLOOD LOSS: Less than or equal to 800 cc. FLUIDS: 1700 cc lactated Ringer's. URINE OUTPUT: 90 cc of clear urine. COMPLICATIONS: None. DRAINS: Andrade to gravity. INDICATION: The patient is a 19-year-old female at 39 weeks and 3 days, having failed induction of labor. The patient was given opportunity to discharge and pursue induction of labor in the following week and declines. The patient desires immediate delivery and the patient is consented for a primary low transverse section for failed induction. DESCRIPTION OF PROCEDURE: After informed consent was assured, the patient was taken to the operating room where anesthetic was assessed and found to be adequate after being prepped and draped. A low transverse incision was made 2 fingerbreadths above the symphysis. This was carried down to the underlying layer of the fascia, which was opened in the midline and extended out laterally using the Keane scissors. The rectus bellies are dissected free superiorly and inferiorly and then in the midline. The peritoneum was entered OPERATIVE REPORT [id number] DINO BURNETTE sharply and the peritoneal opening extended with good visualization of the bladder. The DeLee all-purpose retractor was inserted and the lower field visualized. Due to the adipose and difficulty in keeping the pannus above the operative field, the Camilo is now placed and tightened. The bladder blade was reinserted and a low transverse hysterotomy was performed after developing a bladder flap. The was delivered on to the abdomen atraumatically. Clear fluid is noted. The cord was doubly clamped and cut and the infant was passed to the attendant. Cord blood samples obtained. Placenta was delivered via Crede maneuver. The uterus were exteriorized, cleared of all clot and debris and then returned to the abdomen for repair. Using a Vicryl stitch, the uterus was closed in a running fashion from left to right. [id number] stitches were applied to obtain hemostasis. Continued bleeding from the right corner makes it necessary to perform an O'Watkins stitch to stop further bleeding. After the pelvis was irrigated and irrigant removed, rectus bellies were reapproximated loosely in the midline with chromic and the fascia closed with looped PDS. Subcutaneous tissues were irrigated, bleeding vessels cauterized, and the skin and the subcutaneous tissue reapproximated with a plain gut ligature. Monocryl was used to reapproximate the skin. Dermabond was applied. Sponge, lap, and needle counts correct times 2. TRANSINT:[id number] Voice Confirmation ID: [id number] DOCUMENT ID: [id number] RIK TALBOT MD at 1606 CC: [id number] DICTATION DATE: 12/19/19 1352 CONSUMER AFFAIRS MANAGER: [id number] DIS IN 12/17/19 [facility] [address] [place] [address]
== END 2019-12-17 11:28 | disposition home or self-care (01) | DRG 788 ==
LOC: D.LD 20:11 → D.WS 12-15 20:30 → D.LD 12-16 11:04
PROVIDERS: ADMIT Obstetrics & Gynecology; ATTEND Obstetrics & Gynecology
PROC: 3E033VJ Introduction of Other Hormone into Peripheral Vein, Percutaneous Approach (ICD-10-PCS; 2019-12-13)
PROC: 3E0P7VZ Introduction of Hormone into Female Reproductive, Via Natural or Artificial Opening (ICD-10-PCS; 2019-12-13)
PROC: 10D00Z1 Extraction of Products of Conception, Low, Open Approach (ICD-10-PCS; principal; 2019-12-15 13:00)
DX: O61.0 Failed medical induction of labor (principal); O99.334 Smoking (tobacco) complicating childbirth; F17.200 Nicotine dependence, unspecified, uncomplicated; Z3A.39 39 weeks gestation of pregnancy; Z37.0 Single live birth